=== PATIENT | female | born 1940 | race Caucasian/White ===

== ENCOUNTER 2021-04-14 12:15 | Inpatient (IN) | payer MEDICARE, OTHER ==
[~2021-04-14] VITALS: Ht 152.4 cm; Wt 62.0 kg
[~2021-04-14 12:15] MED LIST: ALBU8.5H17 IH; FLUO-213 PO; FLUT16SP26 BOTHNARES; HYDR-3972 PO; LISI-790 PO; LORA0.5T PO; LORA10TA7 PO; MAGN400C PO; METO50TA16 PO; PANT-47 PO; POLY119P17 PO; QUET-1 PO
--- NOTE | 2021-04-14 12:42 | NUR ---
pt transported to CT. Blood sugar 92
[2021-04-14 12:50] LABS: BASOPHILS # (AUTO) 0.1 X10'3 (0-0.2); BASOPHILS % (AUTO) 0.8 % (0-1); EOSINOPHILS # (AUTO) 0.2 X10'3 (0-0.9); EOSINOPHILS % (AUTO) 2.6 % (0-6); HEMATOCRIT 40.1 % (35.0-45.0); HEMOGLOBIN 13.3 g/dl (12.0-16.0); LYMPHOCYTES # (AUTO) 0.9 X10'3 (1.1-4.8); LYMPHOCYTES % (AUTO) 14.4 % (21-51); MEAN CORPUSCULAR HEMOGLOBIN 29.9 PG (27.0-31.0); MEAN CORPUSCULAR HGB CONC 33.1 g/dL (33.0-36.5); MEAN CORPUSCULAR VOLUME 90.3 FL (78-98); MONOCYTES # (AUTO) 0.9 X10'3 (0-0.9); MONOCYTES % (AUTO) 14.9 % (2-12); NEUTROPHILS # (AUTO) 4.1 X10'3 (1.8-7.7); NEUTROPHILS % (AUTO) 67.3 % (42-75); PLATELET COUNT 295 X10'3 (140-440); RED BLOOD COUNT 4.43 X10'6 (4.20-5.60); RED CELL DISTRIBUTION WIDTH 13.8 % (11.5-14.5); WHITE BLOOD COUNT 6.1 X10'3 (4.5-11.0)
[2021-04-14 13:17] LABS: ANION GAP 10 (8-16); BLOOD UREA NITROGEN 8 MG/DL (7-18); BUN/CREATININE RATIO 8.5 (6.6-38.0); CHLORIDE 95 MMOL/L (99-107); CREATININE 0.94 MG/DL (0.40-0.90); GLUCOSE 103 MG/DL (70-104); SODIUM 129 MMOL/L (135-145); TOTAL CARBON DIOXIDE 24.5 MMOL/L (24-32)
[2021-04-14 13:18] LABS: ALANINE AMINOTRANSFERASE 20 U/L (12-78); ALBUMIN/GLOBULIN RATIO 1.1 (1.1-1.5); ALKALINE PHOSPHATASE 76 IU/L (46-116); BILIRUBIN,TOTAL 0.6 MG/DL (0.1-1.0); CALCIUM 8.8 MG/DL (8.5-10.1); TOTAL PROTEIN 7.6 G/DL (6.4-8.2); eGFR 57 ML/MIN
[2021-04-14 13:21] LABS: ASPARTATE AMINO TRANSFERASE 31 U/L (10-37); POTASSIUM 3.6 MMOL/L (3.5-5.1)
[2021-04-14 13:53] LABS: PARTIAL THROMBOPLASTIN TIME 26 SECONDS (22-32)
[2021-04-14] MEDS ORDERED: iohexol 350MG/ML 100ml bottle IV ONE (14:02)
[2021-04-14] MEDS ORDERED: aspirin 325mg tablet PO ONE (14:20)
[2021-04-14 14:47] LABS: CLARITY,URINE CLEAR (Clear); COLOR,URINE STRAW (Yellow); GLUCOSE, URINE NEGATIVE (Neg); KETONES,URINE NEGATIVE (Neg); LEUKOCYTE ESTERASE ,URINE NEGATIVE (Neg); NITRITES, URINE NEGATIVE (Neg); OCCULT BLOOD,URINE NEGATIVE (Neg); PH,URINE 6.5 (4.8-8.0); PROTEIN,URINE NEGATIVE (Neg); UA COLLECTION TYPE NON-SPECIFIED; UROBILINOGEN,URINE 0.2 E.U/dL (0.2-1.0)
[2021-04-14 14:52] LABS: URINE AMPHETAMINE SCREEN NEGATIVE (Neg); URINE BARBITUATE SCREEN NEGATIVE (Neg); URINE BENZODIAZEPINES SCREEN NEGATIVE (Neg); URINE CANNABINOID SCREEN NEGATIVE (Neg); URINE COCAINE SCREEN NEGATIVE (Neg); URINE METHADONE SCREEN NEGATIVE (Neg); URINE OPIATE SCREEN NEGATIVE (Neg); URINE PHENCYCLIDINE SCREEN NEGATIVE (Neg)
[2021-04-14] MEDS ORDERED: LISI10TA27 PO (14:57)
[2021-04-14] MEDS ORDERED: DICY10CA14 PO (14:58)
[2021-04-14] MEDS ORDERED: FLUO10CA30 PO (14:59)
[2021-04-14] MEDS ORDERED: ATOR10TA70 PO (15:00)
[2021-04-14] MEDS ORDERED: MELO-102 PO (15:01)
[2021-04-14] MEDS ORDERED: DEXT30DR6 EACHEYE (15:05)
[2021-04-14] MEDS ORDERED: TIOT4MIS3 IH (15:05)
[2021-04-14] MEDS ORDERED: POLY15DR17 EACHEYE (15:06)
[2021-04-14] MEDS ORDERED: magnesium Cl slow-release 64mg tablet PO PRN (16:05)
[2021-04-14] MEDS ORDERED: magnesium 2GM in 50ml NS 50 ML IV PRN (16:05)
[2021-04-14] MEDS ORDERED: morphine 2 MG/ML inj. syringe IV PRN (16:05)
[2021-04-14] MEDS ORDERED: potassium Cl 20 mEq SR tablet PO PRN ×2 (16:05)
[2021-04-14] MEDS ORDERED: potassium Cl 40MEQ/1/2NS 520ml 520 ML IV PRN ×2 (16:05)
[2021-04-14] MEDS ORDERED: ondansetron/PF 4mg/2ml inj IV PRN (16:05)
[2021-04-14] MEDS ORDERED: magnesium 4gm in 100ml NS 100 ML IV PRN (16:05)
[2021-04-14] MEDS ORDERED: acetaminophen 325mg tablet PO PRN (16:05)
--- NOTE | 2021-04-14 16:55 | NUR ---
BRANCH MANAGER TRAINEE AT BEDSIDE.
[2021-04-14] MEDS ORDERED: polyvinyl alcohol ophthalmic drops 15ml bottle EACHEYE PRN (17:50)
[2021-04-14] MEDS ORDERED: albuterol 2.5 MG/3 ML nebule NEB PRN (18:35)
[2021-04-14] MEDS: K and/or MAG REPLACEMENT MC SCH (18:47)
[2021-04-14] MEDS: normal saline 1000ml 1,000 ML IV SCH (18:53)
[2021-04-14 20:00] VITALS: BP 155/86
--- NOTE | 2021-04-14 20:17 | NUR ---
REPORT RECEIVED FROM JAIMEE LYNN IN ER AND HAD AN OPPORTUNITY TO ASK QUESTIONS. PATIENT STILL IN ER AND WILL CONTINUE TO MONITOR WHEN SHE ARRIVES ON THE UNIT.
[2021-04-14] MEDS: ipratropium/albuterol 3ml nebule IH SCH (20:18)
[2021-04-14] MEDS: lisinopril 10 MG tablet PO SCH (20:38)
[2021-04-14] MEDS: quetiapine 100mg tablet PO SCH (20:38)
[2021-04-14] MEDS: FLUoxetine 10mg capsule PO SCH (20:38)
[2021-04-14] MEDS: heparin, porcine 5000 units/ml vial SQ SCH (20:39)
[2021-04-14] MEDS: acetaminophen 325mg tablet PO PRN (22:18)
[2021-04-15] VITALS (7 sets, daily range): BP systolic 92–170; BP diastolic 59–93
[2021-04-15] MEDS: HYDROcodone/acetaminophen 5mg/325mg tablet PO PRN (02:32)
[2021-04-15] MEDS: normal saline 1000ml 1,000 ML IV SCH ×2 (06:18→20:36)
[2021-04-15 06:37] LABS: BASOPHILS % (AUTO) 0.6 % (0-1); EOSINOPHILS # (AUTO) 0.1 X10'3 (0-0.9); EOSINOPHILS % (AUTO) 2.7 % (0-6); HEMATOCRIT 38.6 % (35.0-45.0); HEMOGLOBIN 12.8 g/dl (12.0-16.0); LYMPHOCYTES % (AUTO) 20.7 % (21-51); MEAN CORPUSCULAR HEMOGLOBIN 29.9 PG (27.0-31.0); MEAN CORPUSCULAR HGB CONC 33.2 g/dL (33.0-36.5); MEAN CORPUSCULAR VOLUME 90.2 FL (78-98); MEAN PLATELET VOLUME 8.4 FL (7.4-10.4); MONOCYTES # (AUTO) 0.9 X10'3 (0-0.9); MONOCYTES % (AUTO) 18.7 % (2-12); NEUTROPHILS # (AUTO) 2.9 X10'3 (1.8-7.7); NEUTROPHILS % (AUTO) 57.3 % (42-75); PLATELET COUNT 279 X10'3 (140-440); RED BLOOD COUNT 4.28 X10'6 (4.20-5.60); RED CELL DISTRIBUTION WIDTH 13.9 % (11.5-14.5)
--- NOTE | 2021-04-15 06:38 | NUR ---
Problems reprioritized. Patient report given, questions answered & plan of care reviewed with JIMY LYNN.
[2021-04-15 06:57] LABS: ALANINE AMINOTRANSFERASE 16 U/L (12-78); ALBUMIN 3.4 G/DL (3.4-5.0); ALKALINE PHOSPHATASE 62 IU/L (46-116); ANION GAP 10 (8-16); ASPARTATE AMINO TRANSFERASE 20 U/L (10-37); BILIRUBIN,TOTAL 0.5 MG/DL (0.1-1.0); BLOOD UREA NITROGEN 8 MG/DL (7-18); CALCIUM 8.6 MG/DL (8.5-10.1); CHLORIDE 103 MMOL/L (99-107); CHOL/HDL RATIO 1.7 (0.00-4.99); CHOLESTEROL 166 MG/DL (0-200); GLUCOSE 99 MG/DL (70-104); HDL CHOLESTEROL 95 MG/DL (35-60); LDL CHOLESTEROL 52 MG/DL (50-100); POTASSIUM 3.6 MMOL/L (3.5-5.1); TOTAL CARBON DIOXIDE 26.3 MMOL/L (24-32); TOTAL PROTEIN 6.7 G/DL (6.4-8.2); TRIGLYCERIDES 59 MG/DL (20-135); eGFR 53 ML/MIN
[2021-04-15] MEDS: ipratropium/albuterol 3ml nebule IH SCH ×4 (07:14→20:53)
[2021-04-15 07:26] LABS: SODIUM 139 MMOL/L (135-145)
[2021-04-15] MEDS: pantoprazole 40mg Tablet.DR PO SCH (07:40)
[2021-04-15] MEDS: aspirin 81mg, enteric-coated 1 TAB TABLET.DR PO SCH (07:40)
[2021-04-15] MEDS: atorvastatin 20mg tablet PO SCH (07:40)
[2021-04-15] MEDS: lisinopril 10 MG tablet PO SCH ×2 (07:40→19:07)
[2021-04-15] MEDS: heparin, porcine 5000 units/ml vial SQ SCH ×2 (07:40→19:02)
[2021-04-15] MEDS: K and/or MAG REPLACEMENT MC SCH ×2 (08:00→20:00)
--- NOTE | 2021-04-15 10:43 | NUR ---
Malnutrition consult: Pt reports 2-13 lb wt loss with decreased appetite per malnutrition risk screen with RN. Per ED report pt BIB for expressive aphasia and patient's noticed increased confusion since the onset of aphasia. Pt A/O x 2 and very forgetful per physical assessment and per H&P patient's reports pt with baseline dementia. Current documented wt of 62 kg isn't scaled however is stable with most recent scaled wt hx in EMR of 62.4 kg taken 12/04/16 with a bed scale. Pt currently on a heart healthy diet, pending documentation of PO intake. Recommend diet liberalization to regular in view of geriatric age. Pt with no documented significant decrease in muscle strength or edema. Pt currently lacks a minimum of two criteria for malnutrition. Will continue to follow. Addendum: 04/15/21 at [address] Amended: Links added.
--- NOTE | 2021-04-15 10:51 | NUR ---
radiology paged regardng x-ray order . patient name bg wyatt room 12C need her both knee x-ray, reason is s/p fall .
--- NOTE | 2021-04-15 18:13 | NUR ---
Patient in room PCU 3012. I have received report from JIMY LYNN and had the opportunity to ask questions and assume patient care.
[2021-04-15] MEDS ORDERED: hyDRALAzine 10mg tablet PO PRN (18:35)
[2021-04-15] MEDS ORDERED: hydrALAZINE 20mg/ml inj. IV PRN (18:45)
[2021-04-15] MEDS: quetiapine 100mg tablet PO SCH (19:07)
[2021-04-15] MEDS: acetaminophen 325mg tablet PO PRN (19:07)
[2021-04-15] MEDS: FLUoxetine 10mg capsule PO SCH (19:08)
[2021-04-16 02:00] VITALS: BP 138/89
--- NOTE | 2021-04-16 06:27 | NUR ---
Problems reprioritized. Patient report given, questions answered & plan of care reviewed with BENNY LYNN.
[2021-04-16 06:35] LABS: ALANINE AMINOTRANSFERASE 17 U/L (12-78); ALBUMIN 3.4 G/DL (3.4-5.0); ALBUMIN/GLOBULIN RATIO 1.1 (1.1-1.5); ALKALINE PHOSPHATASE 74 IU/L (46-116); ANION GAP 6 (8-16); ASPARTATE AMINO TRANSFERASE 23 U/L (10-37); BILIRUBIN,TOTAL 0.5 MG/DL (0.1-1.0); BLOOD UREA NITROGEN 12 MG/DL (7-18); BUN/CREATININE RATIO 10.8 (6.6-38.0); CALCIUM 8.7 MG/DL (8.5-10.1); CHLORIDE 106 MMOL/L (99-107); CREATININE 1.11 MG/DL (0.40-0.90); GLUCOSE 97 MG/DL (70-104); MAGNESIUM 1.9 MG/DL (1.5-2.4); POTASSIUM 3.7 MMOL/L (3.5-5.1); SODIUM 139 MMOL/L (135-145); TOTAL CARBON DIOXIDE 26.9 MMOL/L (24-32); TOTAL PROTEIN 6.6 G/DL (6.4-8.2); eGFR 47 ML/MIN
--- NOTE | 2021-04-16 06:36 | NUR ---
Patient in room PCU 3012. I have received report from Mckenna/Lawanda LYNN and had the opportunity to ask questions and assume patient care.
[2021-04-16 06:38] LABS: BASOPHILS % (AUTO) 0.5 % (0-1); EOSINOPHILS # (AUTO) 0.2 X10'3 (0-0.9); EOSINOPHILS % (AUTO) 2.3 % (0-6); HEMATOCRIT 37.9 % (35.0-45.0); HEMOGLOBIN 12.6 g/dl (12.0-16.0); LYMPHOCYTES % (AUTO) 15.5 % (21-51); MEAN CORPUSCULAR HEMOGLOBIN 30.1 PG (27.0-31.0); MEAN CORPUSCULAR HGB CONC 33.3 g/dL (33.0-36.5); MEAN CORPUSCULAR VOLUME 90.3 FL (78-98); MEAN PLATELET VOLUME 8.4 FL (7.4-10.4); MONOCYTES # (AUTO) 1.1 X10'3 (0-0.9); MONOCYTES % (AUTO) 16.9 % (2-12); NEUTROPHILS # (AUTO) 4.2 X10'3 (1.8-7.7); NEUTROPHILS % (AUTO) 64.8 % (42-75); PLATELET COUNT 296 X10'3 (140-440); RED CELL DISTRIBUTION WIDTH 13.9 % (11.5-14.5); WHITE BLOOD COUNT 6.5 X10'3 (4.5-11.0)
[2021-04-16 07:00] VITALS: BP 105/57
[2021-04-16] MEDS: ipratropium/albuterol 3ml nebule IH SCH ×2 (07:00→11:18)
[2021-04-16] MEDS: K and/or MAG REPLACEMENT MC SCH ×2 (07:47→20:00)
[2021-04-16 08:00] VITALS: BP_SYST 165; BP_SYST 173; BP_SYST 175; BP_DIAS 101; BP_DIAS 88; BP_DIAS 92
[2021-04-16] MEDS: heparin, porcine 5000 units/ml vial SQ SCH ×2 (09:56→20:20)
[2021-04-16] MEDS: aspirin 81mg, enteric-coated 1 TAB TABLET.DR PO SCH (09:56)
[2021-04-16] MEDS: normal saline 1000ml 1,000 ML IV SCH (09:57)
[2021-04-16] MEDS: atorvastatin 20mg tablet PO SCH (09:57)
[2021-04-16] MEDS: pantoprazole 40mg Tablet.DR PO SCH (09:57)
[2021-04-16] MEDS: lisinopril 10 MG tablet PO SCH ×2 (09:57→20:21)
[2021-04-16 11:00] VITALS: BP 165/88
[2021-04-16] MEDS ORDERED: ipratropium/albuterol 3ml nebule IH PRN (11:30)
--- NOTE | 2021-04-16 14:36 | NUR ---
discharge inquiry PAGER ID: [phone] MESSAGE: ROOM [id number] [facility], PATIENT INQUIRING ABOUT DISCHARGE PLAN, PT RECOMMENDS "DISCHARGE HOME WITH ASSISTANCE", PATIENT LIVES WITH , CASE MANAGEMENT STATES "AMBULATES INDEPENDANTLY"
--- NOTE | 2021-04-16 16:01 | NUR ---
Awaiting discharge. Pt conversation more fluent. Epressive aphasia improved. Occ stumbles in conversation if anxious. Up and down to BR independently bedside RN reports. Still has some dim sensation to right arm and leg with light touch.
--- NOTE | 2021-04-16 16:45 | NUR ---
discharge inquiry PAGER ID: [phone] MESSAGE: room 3012C Kassy Hayes, is patient able to discharge today? cannot drive at night and understood she might discharge today. Thank you, Mckenna LYNN [phone]
[2021-04-16 20:00] VITALS: BP_SYST 153; BP_SYST 164; BP_SYST 167; BP_DIAS 80; BP_DIAS 81; BP_DIAS 88
[2021-04-16] MEDS: FLUoxetine 10mg capsule PO SCH (20:16)
[2021-04-16] MEDS: quetiapine 100mg tablet PO SCH (20:16)
[2021-04-16] MEDS: HYDROcodone/acetaminophen 5mg/325mg tablet PO PRN (20:27)
[2021-04-17] MEDS: normal saline 1000ml 1,000 ML IV SCH (01:12)
[2021-04-17 02:00] VITALS: BP 167/85
[2021-04-17] MEDS: acetaminophen 325mg tablet PO PRN (04:12)
--- NOTE | 2021-04-17 06:25 | NUR ---
Patient in room PCU 3012. I have received report from CATRINA LYNN and had the opportunity to ask questions and assume patient care.
[2021-04-17 06:26] LABS: BASOPHILS % (AUTO) 0.4 % (0-1); EOSINOPHILS # (AUTO) 0.2 X10'3 (0-0.9); EOSINOPHILS % (AUTO) 1.6 % (0-6); HEMATOCRIT 40.6 % (35.0-45.0); HEMOGLOBIN 13.4 g/dl (12.0-16.0); LYMPHOCYTES # (AUTO) 0.9 X10'3 (1.1-4.8); LYMPHOCYTES % (AUTO) 9.1 % (21-51); MEAN PLATELET VOLUME 8.1 FL (7.4-10.4); MONOCYTES # (AUTO) 1.3 X10'3 (0-0.9); MONOCYTES % (AUTO) 12.7 % (2-12); NEUTROPHILS # (AUTO) 7.8 X10'3 (1.8-7.7); NEUTROPHILS % (AUTO) 76.2 % (42-75); PLATELET COUNT 301 X10'3 (140-440); RED BLOOD COUNT 4.46 X10'6 (4.20-5.60); WHITE BLOOD COUNT 10.2 X10'3 (4.5-11.0)
--- NOTE | 2021-04-17 06:36 | NUR ---
Problems reprioritized. Patient report given, questions answered & plan of care reviewed with Courtney LYNN.
[2021-04-17 06:53] LABS: ALANINE AMINOTRANSFERASE 19 U/L (12-78); ALBUMIN 3.5 G/DL (3.4-5.0); ALKALINE PHOSPHATASE 65 IU/L (46-116); ANION GAP 11 (8-16); ASPARTATE AMINO TRANSFERASE 20 U/L (10-37); BILIRUBIN,TOTAL 0.6 MG/DL (0.1-1.0); BLOOD UREA NITROGEN 9 MG/DL (7-18); BUN/CREATININE RATIO 9.1 (6.6-38.0); CALCIUM 8.6 MG/DL (8.5-10.1); CHLORIDE 104 MMOL/L (99-107); CREATININE 0.99 MG/DL (0.40-0.90); GLUCOSE 96 MG/DL (70-104); POTASSIUM 3.2 MMOL/L (3.5-5.1); SODIUM 138 MMOL/L (135-145); TOTAL CARBON DIOXIDE 23.2 MMOL/L (24-32); TOTAL PROTEIN 6.9 G/DL (6.4-8.2); eGFR 54 ML/MIN
[2021-04-17 07:00] VITALS: BP 136/66
[2021-04-17] MEDS: heparin, porcine 5000 units/ml vial SQ SCH (08:00)
[2021-04-17] MEDS: pantoprazole 40mg Tablet.DR PO SCH (08:00)
[2021-04-17] MEDS: K and/or MAG REPLACEMENT MC SCH (08:00)
[2021-04-17] MEDS: aspirin 81mg, enteric-coated 1 TAB TABLET.DR PO SCH (09:50)
[2021-04-17] MEDS: lisinopril 10 MG tablet PO SCH (09:50)
[2021-04-17] MEDS: atorvastatin 20mg tablet PO SCH (09:50)
[2021-04-17 11:00] VITALS: BP 167/92
--- NOTE | 2021-04-17 14:03 | NUR ---
FOUR ATTEMPTS TO CONTACT TELE NEURO CONSULT THROUGH TELE [facility], AND STILL NO RESPONSE
[2021-04-17] MEDS ORDERED: clopidogrel 75mg tablet PO ONE (14:25)
[2021-04-17] MEDS ORDERED: ATOR20TA66 PO (14:27)
[2021-04-17] MEDS ORDERED: ASPI-1071 PO (14:27)
[2021-04-17] MEDS ORDERED: CLOP75TA15 PO (14:27)
--- NOTE | 2021-04-17 14:51 | NUR ---
Ready for discharge. Standing at bedside, dressed and receiving discharge instructions from bedside RN.
--- NOTE | 2021-04-17 15:08 | NUR ---
Pt ready for discharge per MD order, all discharge instructions reviewed with patient and all questions answered.New prescriptions faxed to pharmacy. PIV discontinued, cannula intact. Telemetry discontinued, television inspector notified. All belongings collected and sent with patient. Pt picked up by family member in private vehicle, wheeled to lobby by staff.
== END 2021-04-17 14:59 | disposition home or self-care (01) | DRG 65 ==
LOC: ER 12:16 → ED HOLD 16:05 → PCU 3S 19:15 → EDBEDREQ 19:31 → PCU 3S 04-17 11:01
PROVIDERS: ADMIT Internal Medicine; ATTEND Internal Medicine
PROC: B3251ZZ Computerized Tomography (CT Scan) of Bilateral Common Carotid Arteries using Low Osmolar Contrast (ICD-10-PCS; principal; 2021-04-14)
PROC: B32G1ZZ Computerized Tomography (CT Scan) of Bilateral Vertebral Arteries using Low Osmolar Contrast (ICD-10-PCS; 2021-04-14)
PROC: B32R1ZZ Computerized Tomography (CT Scan) of Intracranial Arteries using Low Osmolar Contrast (ICD-10-PCS; 2021-04-14)
PROC: B3281ZZ Computerized Tomography (CT Scan) of Bilateral Internal Carotid Arteries using Low Osmolar Contrast (ICD-10-PCS; 2021-04-14)
DX: I63.9 Cerebral infarction, unspecified (principal); E87.1 Hypo-osmolality and hyponatremia; R47.01 Aphasia; I50.9 Heart failure, unspecified; I11.0 Hypertensive heart disease with heart failure; F03.90 Unspecified dementia, unspecified severity, without behavioral disturbance, psychotic disturbance, mood disturbance, and anxiety; G89.29 Other chronic pain; R47.81 Slurred speech; Z20.822 Contact with and (suspected) exposure to COVID-19; R47.1 Dysarthria and anarthria; M25.562 Pain in left knee; R29.702 NIHSS score 2; M25.462 Effusion, left knee; J44.9 Chronic obstructive pulmonary disease, unspecified; Z82.41 Family history of sudden cardiac death; Z82.49 Family history of ischemic heart disease and other diseases of the circulatory system; Z82.5 Family history of asthma and other chronic lower respiratory diseases; Z87.01 Personal history of pneumonia (recurrent); Z87.891 Personal history of nicotine dependence; Z90.49 Acquired absence of other specified parts of digestive tract; Z90.710 Acquired absence of both cervix and uterus; Z91.048 Other nonmedicinal substance allergy status; Z79.899 Other long term (current) drug therapy
CPT/HCPCS: 36415; 70450; 70496; 70498; 70544; 70551; 71045; 73564; 80053; 80061; 80305; 81003; 82948; 83735; 85025; 85610; 85730; 86885; 86900; 86901; 87081; 87635; 92508; 92616; 93005; 93306; 93880; 94640; 94760; 97110; 97116; 97162; 99285; G0378; J0360; J1644; J7030; Q9967

== ENCOUNTER 2024-03-09 00:53 | Inpatient (IN) | payer MEDICARE, OTHER ==
[~2024-03-09] VITALS: Ht 157.5 cm; Wt 45.5 kg
[2024-03-09] VITALS (13 sets, daily range): BP systolic 108–142; BP diastolic 63–82; PULSE 80–115; RESP 18–28; TEMP 97–98.6; O2SAT 93–98
[~2024-03-09 00:53] MED LIST changes: -ALBU8.5H17 IH; +ASPI-1071 PO; +ATOR20TA66 PO; +CLOP75TA15 PO; +DICY-19 PO; -FLUO-213 PO; +FLUO-331 PO; -FLUT16SP26 BOTHNARES; -LISI-790 PO; +LISI10TA27 PO; -LORA0.5T PO; -LORA10TA7 PO; -MAGN400C PO; -METO50TA16 PO; -POLY119P17 PO; +POLY15DR17 EACHEYE; +TIOT4MIS3 IH
[2024-03-09] MEDS: ipratropium 0.5 MG/2.5ML nebule IH ONE (01:10)
[2024-03-09] MEDS: albuterol 2.5 MG/3 ML nebule CONTNEB PRN (01:21)
[2024-03-09] MEDS: magnesium sulf-water 2g/50mL 50 ML IV ONE (01:22)
[2024-03-09] MEDS: methylPREDNISolone sod succ 125mg/2ml vial IV ONE (01:22)
[2024-03-09 01:35] LABS: BASOPHILS # (AUTO) 0.1 X10'3 (0-0.2); EOSINOPHILS # (AUTO) 0.2 X10'3 (0-0.9); LYMPHOCYTES # (AUTO) 2.3 X10'3 (1.1-4.8); MEAN CORPUSCULAR HEMOGLOBIN 31.7 PG (27.0-31.0); MEAN CORPUSCULAR HGB CONC 33.3 g/dL (33.0-36.5); MEAN PLATELET VOLUME 8.8 FL (7.4-10.4)
[2024-03-09 01:37] LABS: BASOPHILS % (AUTO) 0.8 % (0-1); EOSINOPHILS % (AUTO) 1.5 % (0-6); HEMATOCRIT 44.6 % (35.0-45.0); HEMOGLOBIN 14.9 g/dl (12.0-16.0); LYMPHOCYTES % (AUTO) 21.9 % (21-51); MONOCYTES # (AUTO) 1.3 X10'3 (0-0.9); MONOCYTES % (AUTO) 12.6 % (2-12); NEUTROPHILS # (AUTO) 6.5 X10'3 (1.8-7.7); NEUTROPHILS % (AUTO) 63.2 % (42-75); PLATELET COUNT 277 X10'3 (140-440); RED BLOOD COUNT 4.69 X10'6 (4.20-5.60); RED CELL DISTRIBUTION WIDTH 14.6 % (11.5-14.5); WHITE BLOOD COUNT 10.3 X10'3 (4.5-11.0)
[2024-03-09 01:42] LABS: ALANINE AMINOTRANSFERASE 100 U/L (12-78); ALBUMIN 3.7 G/DL (3.4-5.0); ALKALINE PHOSPHATASE 80 IU/L (46-116); ANION GAP 8 (8-16); ASPARTATE AMINO TRANSFERASE 165 U/L (10-37); BILIRUBIN,TOTAL 0.5 MG/DL (0.1-1.0); BLOOD UREA NITROGEN 10 MG/DL (7-18); BUN/CREATININE RATIO 12.5 (10.0-20.0); CHLORIDE 97 MMOL/L (99-107); GLUCOSE 127 MG/DL (70-104); POTASSIUM 4.2 MMOL/L (3.5-5.1); SODIUM 133 MMOL/L (135-145); TOTAL CARBON DIOXIDE 27.8 MMOL/L (24-32); TOTAL PROTEIN 7.3 G/DL (6.4-8.2); eCRCL 37 ML/MIN; eGFR 68 ML/MIN
[2024-03-09 01:50] LABS: PRO BRAIN NATRIURETIC PEPTIDE 10852 PG/ML (0-450)
[2024-03-09] MEDS: aspirin 81mg tab.chew PO ONE (02:19)
[2024-03-09] MEDS: nitroGLYCERIN 0.2mg/hour patch TD ONE (02:47)
[2024-03-09] MEDS: furosemide 10 MG/1 ML 10ml inj IV ONE (02:47)
[2024-03-09] MEDS ORDERED: potassium Cl 20 mEq SR tablet PO PRN (04:00)
[2024-03-09] MEDS ORDERED: magnesium sulf-water 4G/100mL 100 ML IV PRN (04:00)
[2024-03-09] MEDS ORDERED: magnesium sulf-water 2g/50mL 50 ML IV PRN (04:00)
[2024-03-09] MEDS ORDERED: potassium Cl 40MEQ/1/2NS 520ml 520 ML IV PRN (04:00)
[2024-03-09] MEDS ORDERED: acetaminophen 325mg tablet PO PRN (04:00)
[2024-03-09] MEDS ORDERED: ondansetron/PF 4mg/2ml inj IV PRN (04:00)
[2024-03-09] MEDS ORDERED: mag hydrox/Alum hydrox/simeth 30ml oral suspension PO PRN (04:00)
[2024-03-09] MEDS ORDERED: magnesium Cl slow-release 64mg tablet PO PRN (04:00)
[2024-03-09] MEDS ORDERED: magnesium hydroxide 30ml (MOM) UD suspension PO PRN (04:00)
[2024-03-09] MEDS: nitroGLYCERIN 0.4mg/hour patch TD ONE (04:39)
[2024-03-09] MEDS: PERFLUTREN PROTEIN-A MICROSPHR (Optison) 0.22 MG/ML 3ML VIAL IV ONE (04:40)
[2024-03-09] MEDS ORDERED: albuterol 2.5 MG/3 ML nebule NEB PRN (05:00)
[2024-03-09 05:03] LABS: MAGNESIUM 2.2 MG/DL (1.5-2.4); POTASSIUM 3.1 MMOL/L (3.5-5.1)
[2024-03-09 05:13] LABS: BILIRUBIN,URINE NEGATIVE (Neg); CLARITY,URINE CLEAR (Clear); COLOR,URINE STRAW (Yellow); GLUCOSE, URINE NEGATIVE (Neg); KETONES,URINE NEGATIVE (Neg); LEUKOCYTE ESTERASE ,URINE NEGATIVE (Neg); NITRITES, URINE NEGATIVE (Neg); OCCULT BLOOD,URINE NEGATIVE (Neg); PROTEIN,URINE NEGATIVE (Neg); UROBILINOGEN,URINE 0.2 E.U/dL (0.2-1.0)
[2024-03-09 05:22] LABS: UA COLLECTION TYPE CLN CATCH MIDSTREAM
[2024-03-09] MEDS: ipratropium/albuterol 3ml nebule NEB SCH (07:00)
[2024-03-09] MEDS ORDERED: furosemide 10 MG/1 ML 10ml inj IV SCH (08:00)
[2024-03-09] MEDS: docusate sod 100mg capsule PO SCH (08:40)
[2024-03-09] MEDS: azithromycin 250mg tablet PO SCH (08:40)
[2024-03-09] MEDS: methylPREDNISolone sod succ/PF 40mg inj. IV SCH (08:41)
[2024-03-09] MEDS: furosemide 10 MG/1 ML 10ml inj IV SCH (08:42)
[2024-03-09] MEDS: nicotine 21mg patch - 24 hr TD ONE (08:42)
[2024-03-09] MEDS ORDERED: HYDROcodone/acetaminophen 10/325mg tab PO PRN (09:50)
[2024-03-09] MEDS: lisinopril 10 MG tablet PO ONE (11:46)
[2024-03-09] MEDS: potassium Cl 20 mEq SR tablet PO PRN (11:47)
[2024-03-09] MEDS: K and/or MAG REPLACEMENT MC SCH (11:48)
[2024-03-09] MEDS: albuterol 2.5 MG/3 ML nebule NEB SCH (14:00)
[2024-03-09] MEDS: carVEDilol 3.125mg tablet PO SCH (22:25)
[2024-03-09] MEDS: quetiapine 100mg tablet PO SCH (22:26)
[2024-03-09] MEDS: lisinopril 10 MG tablet PO SCH (22:26)
[2024-03-09] MEDS: FLUoxetine 10mg capsule PO SCH (22:26)
[2024-03-10] VITALS (10 sets, daily range): BP systolic 114–127; BP diastolic 66–69; PULSE 86–106; RESP 14–23; TEMP 97.8–98.4; O2SAT 92–98
[2024-03-10 05:51] LABS: BASOPHILS % (AUTO) 0.1 % (0-1); EOSINOPHILS % (AUTO) 0 % (0-6); HEMATOCRIT 39.5 % (35.0-45.0); LYMPHOCYTES # (AUTO) 1.2 X10'3 (1.1-4.8); LYMPHOCYTES % (AUTO) 11.1 % (21-51); MEAN CORPUSCULAR HEMOGLOBIN 31.3 PG (27.0-31.0); MEAN CORPUSCULAR HGB CONC 32.9 g/dL (33.0-36.5); MEAN CORPUSCULAR VOLUME 94.9 FL (78-98); MEAN PLATELET VOLUME 8.6 FL (7.4-10.4); MONOCYTES # (AUTO) 1.4 X10'3 (0-0.9); MONOCYTES % (AUTO) 12.9 % (2-12); NEUTROPHILS % (AUTO) 75.9 % (42-75); PLATELET COUNT 222 X10'3 (140-440); RED BLOOD COUNT 4.16 X10'6 (4.20-5.60); RED CELL DISTRIBUTION WIDTH 14.6 % (11.5-14.5); WHITE BLOOD COUNT 10.5 X10'3 (4.5-11.0)
[2024-03-10 05:58] LABS: PROTHROMBIN TIME 10.9 SECONDS (9.0-12.0)
[2024-03-10 06:05] LABS: ALANINE AMINOTRANSFERASE 53 U/L (12-78); ALBUMIN 3.1 G/DL (3.4-5.0); ALKALINE PHOSPHATASE 48 IU/L (46-116); ANION GAP 10 (8-16); ASPARTATE AMINO TRANSFERASE 38 U/L (10-37); BILIRUBIN,TOTAL 0.5 MG/DL (0.1-1.0); BLOOD UREA NITROGEN 30 MG/DL (7-18); BUN/CREATININE RATIO 24.6 (10.0-20.0); CALCIUM 8.9 MG/DL (8.5-10.1); CHLORIDE 100 MMOL/L (99-107); CHOL/HDL RATIO 1.8 (0.00-4.99); CHOLESTEROL 171 MG/DL (0-200); CREATININE 1.22 MG/DL (0.40-0.90); GLUCOSE 97 MG/DL (70-104); HDL CHOLESTEROL 93 MG/DL (35-60); LDL CHOLESTEROL 56 MG/DL (50-100); MAGNESIUM 1.9 MG/DL (1.5-2.4); POTASSIUM 3.6 MMOL/L (3.5-5.1); SODIUM 140 MMOL/L (135-145); TOTAL CARBON DIOXIDE 29.7 MMOL/L (24-32); TOTAL PROTEIN 6.2 G/DL (6.4-8.2); TRIGLYCERIDES 57 MG/DL (20-135); eCRCL 24 ML/MIN; eGFR 42 ML/MIN
[2024-03-10] MEDS ORDERED: ipratropium 0.5 MG/2.5ML nebule NEB SCH (08:00)
[2024-03-10] MEDS: furosemide 10 MG/1 ML 10ml inj IV SCH (09:08)
[2024-03-10] MEDS: LORazepam 0.5 MG tablet PO ONE (12:35)
[2024-03-10] MEDS ORDERED: SPIR25TA PO (13:46)
[2024-03-10] MEDS ORDERED: COR3.125T PO (13:46)
[2024-03-10] MEDS ORDERED: LISI10TA27 PO (13:46)
[2024-03-10] MEDS ORDERED: EMPA10TA PO (13:47)
[2024-03-10] MEDS ORDERED: ASPI81TA52 PO (13:47)
== END 2024-03-10 16:30 | disposition home health service (06) | DRG 189 ==
LOC: ER 00:54 → UNDOADMIN 04:08 → ED HOLD 04:08 → PCU 3S 10:41 → ED HOLD 10:41
PROVIDERS: ADMIT Internal Medicine Critical Care Medicine; ATTEND Internal Medicine
DX: J96.01 Acute respiratory failure with hypoxia (principal); I50.23 Acute on chronic systolic (congestive) heart failure; J44.1 Chronic obstructive pulmonary disease with (acute) exacerbation; I16.0 Hypertensive urgency; I11.0 Hypertensive heart disease with heart failure; K76.1 Chronic passive congestion of liver; Z20.822 Contact with and (suspected) exposure to COVID-19; R74.01 Elevation of levels of liver transaminase levels; G89.29 Other chronic pain; F17.210 Nicotine dependence, cigarettes, uncomplicated; Z90.49 Acquired absence of other specified parts of digestive tract; Z90.710 Acquired absence of both cervix and uterus; Z91.09 Other allergy status, other than to drugs and biological substances; Z79.82 Long term (current) use of aspirin; Z79.899 Other long term (current) drug therapy
CPT/HCPCS: 36415; 71045; 76700; 80053; 80061; 81003; 83036; 83605; 83735; 83880; 84132; 84145; 84484; 85025; 85379; 85610; 87040; 87081; 87811; 93005; 93306; 94640; 94760; 96365; 96375; 97110; 97161; 97530; 99291; A7015; G0378; J1940; J2919

== ENCOUNTER → 2024-03-22 | Emergency (ER) | payer MEDICARE ==
[~2024-03-22] VITALS: Ht 157.5 cm; Wt 50.0 kg
[~2024-03-22] MED LIST changes: -ASPI-1071 PO; +ASPI81TA52 PO; -ATOR20TA66 PO; -CLOP75TA15 PO; +COR3.125T PO; -DICY-19 PO; +EMPA10TA PO; -PANT-47 PO; -POLY15DR17 EACHEYE; +SPIR25TA PO
[2024-03-22 13:18] VITALS: BP 43/19; PULSE 64; RESP 10
[2024-03-22] MEDS: normal saline 1000ML IV soln IVB ONE (13:20)
[2024-03-22 13:28] LABS: BASOPHILS # (AUTO) 0.1 X10'3 (0-0.2); BASOPHILS % (AUTO) 0.4 % (0-1); EOSINOPHILS # (AUTO) 0.1 X10'3 (0-0.9); EOSINOPHILS % (AUTO) 0.5 % (0-6); HEMATOCRIT 40.5 % (35.0-45.0); HEMOGLOBIN 12.7 g/dl (12.0-16.0); LYMPHOCYTES # (AUTO) 2.8 X10'3 (1.1-4.8); LYMPHOCYTES % (AUTO) 20.7 % (21-51); MEAN CORPUSCULAR HEMOGLOBIN 31.7 PG (27.0-31.0); MEAN CORPUSCULAR HGB CONC 31.4 g/dL (33.0-36.5); MONOCYTES # (AUTO) 1.8 X10'3 (0-0.9); MONOCYTES % (AUTO) 13.5 % (2-12); NEUTROPHILS # (AUTO) 8.8 X10'3 (1.8-7.7); NEUTROPHILS % (AUTO) 64.9 % (42-75); PLATELET COUNT 72 X10'3 (140-440); RED BLOOD COUNT 4.01 X10'6 (4.20-5.60); WHITE BLOOD COUNT 13.6 X10'3 (4.5-11.0)
[2024-03-22 13:51] LABS: ANISOCYTOSIS FEW; NUCLEATED RED BLOOD CELLS 2 /100WBC (0-0); PLATELET ESTIMATE DECREASED; TOTAL CELLS COUNTED 100
[2024-03-22 13:53] LABS: ALBUMIN 2.5 G/DL (3.4-5.0); ALKALINE PHOSPHATASE 84 IU/L (46-116); ANION GAP 26 (8-16); BILIRUBIN,TOTAL 3.1 MG/DL (0.1-1.0); BLOOD UREA NITROGEN 26 MG/DL (7-18); BUN/CREATININE RATIO 13.3 (10.0-20.0); CALCIUM 10.3 MG/DL (8.5-10.1); CHLORIDE 94 MMOL/L (99-107); CREATININE 1.95 MG/DL (0.40-0.90); PRO BRAIN NATRIURETIC PEPTIDE 12734 PG/ML (0-450); SODIUM 133 MMOL/L (135-145); eCRCL 17 ML/MIN; eGFR 24 ML/MIN
[2024-03-22 13:57] LABS: BURR CELLS 1+
[2024-03-22 14:01] LABS: GLUCOSE 16 MG/DL (70-104)
[2024-03-22 14:02] LABS: TOTAL CARBON DIOXIDE 13.5 MMOL/L (24-32)
[2024-03-22 14:09] LABS: ALANINE AMINOTRANSFERASE 3584 U/L (12-78); ASPARTATE AMINO TRANSFERASE 5761 U/L (10-37); POTASSIUM 4.4 MMOL/L (3.5-5.1)
== END ==
LOC: ER 12:49
DX: I46.9 Cardiac arrest, cause unspecified (principal); R07.89 Other chest pain
CPT/HCPCS: 31500; 36415; 36556; 80053; 82948; 83880; 84484; 85007; 85025; 92950; 93005; 99291; J7030; C1751